=== PATIENT | male | born 1975 | race Caucasian/White ===

== ENCOUNTER 2021-01-24 16:16 | Emergency (ER) | payer BC ==
[~2021-01-24] VITALS: Ht 182.9 cm; Wt 85.4 kg
--- NOTE | 2021-01-24 17:28 | NUR ---
khriszulema reports hiccups since Thursday. Reports worse when lay down. stated here because won't go away. Says limited food consumption due to pain in upper esophagus.
[2021-01-24 18:07] LABS: BASOPHILS # (AUTO) 0.1 X10'3 (0-0.2); BASOPHILS % (AUTO) 0.4 % (0-1); EOSINOPHILS % (AUTO) 0.1 % (0-6); HEMATOCRIT 49.2 % (42.0-52.0); HEMOGLOBIN 16.8 g/dl (14.0-17.9); LYMPHOCYTES # (AUTO) 2.6 X10'3 (1.1-4.8); LYMPHOCYTES % (AUTO) 10.9 % (21-51); MEAN CORPUSCULAR HEMOGLOBIN 29.7 PG (27.0-31.0); MEAN CORPUSCULAR HGB CONC 34.1 g/dL (33.0-36.5); MEAN CORPUSCULAR VOLUME 86.9 FL (78-98); MEAN PLATELET VOLUME 7.6 FL (7.4-10.4); MONOCYTES # (AUTO) 2.8 X10'3 (0-0.9); MONOCYTES % (AUTO) 11.5 % (2-12); NEUTROPHILS # (AUTO) 18.7 X10'3 (1.8-7.7); NEUTROPHILS % (AUTO) 77.1 % (42-75); PLATELET COUNT 355 X10'3 (140-440); RED BLOOD COUNT 5.66 X10'6 (4.70-6.10); RED CELL DISTRIBUTION WIDTH 12.4 % (11.5-14.5); WHITE BLOOD COUNT 24.3 X10'3 (4.5-11.0)
[2021-01-24 18:23] LABS: ALANINE AMINOTRANSFERASE 39 U/L (12-78); ALBUMIN 4.6 G/DL (3.4-5.0); ALKALINE PHOSPHATASE 112 IU/L (46-116); ANION GAP 13 (8-16); ASPARTATE AMINO TRANSFERASE 25 U/L (10-37); BLOOD UREA NITROGEN 68 MG/DL (7-18); BUN/CREATININE RATIO 37.2 (5.4-32.0); CALCIUM 9.5 MG/DL (8.5-10.1); CHLORIDE 90 MMOL/L (99-107); CREATININE 1.83 MG/DL (0.60-1.10); GLUCOSE 135 MG/DL (70-104); POTASSIUM 4.1 MMOL/L (3.5-5.1); SODIUM 129 MMOL/L (135-145); TOTAL CARBON DIOXIDE 25.7 MMOL/L (24-32); TOTAL PROTEIN 9.1 G/DL (6.4-8.2); eGFR 40 ML/MIN
[2021-01-24] MEDS ORDERED: ketorolac tromethamine 15mg/ml inj. IV ONE (18:45)
[2021-01-24] MEDS ORDERED: normal saline 1000ML IV soln IVB ONE (18:45)
[2021-01-24] MEDS ORDERED: pantoprazole 40 MG vial IV ONE (18:45)
[2021-01-24] MEDS ORDERED: chlorproMAZINE 25mg/ml inj. IM ONE (18:45)
[2021-01-24] MEDS ORDERED: gabapentin 300mg capsule PO ONE (18:45)
[2021-01-24] MEDS ORDERED: iohexol 300mg/ml 100ml inj. ONE (20:07)
[2021-01-24 20:33] LABS: TROPONIN I < 0.04 NG/ML (0.0-0.05)
[2021-01-24] MEDS ORDERED: PANT-47 PO (22:39)
[2021-01-24] MEDS ORDERED: GABA300C PO (22:39)
[2021-01-24 22:47] VITALS: BP 136/93
== END 2021-01-24 22:48 | disposition home or self-care (01) ==
LOC: ER 16:19
DX: K44.9 Diaphragmatic hernia without obstruction or gangrene (principal); R06.6 Hiccough; R07.89 Other chest pain; K20.90 Esophagitis, unspecified without bleeding; D72.829 Elevated white blood cell count, unspecified; I10 Essential (primary) hypertension; K21.9 Gastro-esophageal reflux disease without esophagitis; G89.29 Other chronic pain; F12.90 Cannabis use, unspecified, uncomplicated; Z79.899 Other long term (current) drug therapy
CPT/HCPCS: 36415; 70491; 71045; 71260; 80053; 84484; 85025; 87081; 87880; 93005; 96361; 96372; 96374; 96375; 99285; C9113; J1885; J3230; J7030; Q9967